=== PATIENT | male | born 1940 | race Caucasian/White ===

== ENCOUNTER 2017-05-16 10:17 | Emergency (ER) | payer OTHER ==
[~2017-05-16] VITALS: Ht 180.3 cm; Wt 84.0 kg
[2017-05-16 10:23] VITALS: BP 133/64; PULSE 69; RESP 16; TEMP 98.3; O2SAT 98
[2017-05-16] MEDS ORDERED: METF500T PO (10:33)
[2017-05-16] MEDS ORDERED: MULTTAB67 PO (10:33)
[2017-05-16] MEDS ORDERED: TRAM50TA PO (10:33)
[2017-05-16] MEDS ORDERED: ENAL10TA PO (10:33)
[2017-05-16] MEDS ORDERED: MAGN250T11 PO (10:33)
[2017-05-16] MEDS ORDERED: LOVA20TA PO (10:33)
[2017-05-16] MEDS ORDERED: ASPI-516 CHEW (10:33)
[2017-05-16] MEDS ORDERED: IBUP1TAB7 PO (10:33)
[2017-05-16] MEDS ORDERED: ORPHENADRINE INJ 60 MG/2 ML AMP IM ONE (11:15)
[2017-05-16] MEDS ORDERED: predniSONE 20 MG TAB PO ONE (11:15)
[2017-05-16] MEDS ORDERED: PRED20 PO (11:20)
[2017-05-16] MEDS ORDERED: ROBA750T PO (11:20)
--- NOTE | 2017-05-16 11:26 | PD ---
HPI Chief Complaint: Musculoskeletal Complaint Time Seen by Provider: 11:09 Travel History International Travel<30 days: No Contact w/Intl Traveler<30days: No Traveled to known affect area: No History of Present Illness HPI 76-year-old male presents to the emergency department for evaluation of left- sided neck pain that started yesterday. Patient states he woke up yesterday morning with the pain in his left neck. He denies any traumatic injury. He states he had a colonoscopy and then played 18 holes of golf after. He states that it started to hurt worse and then when he woke up this morning it was more painful. He currently rates the pain 7/10 to the left neck, aching and throbbing, without radiation. Patient is on ibuprofen and tramadol at home for pain. Patient states he tried a heating pad last night which helped temporarily. Patient denies any fevers or chills. No chest pain or shortness of breath. No other symptoms or complaints. Patient states the pain is worse if he moves his neck, relieved with keeping his head still. Moderate severity. PFSH Past Medical History High Cholesterol: Yes Diabetes: Yes Patient Takes Glucophage: Yes Hypertension: Yes Medical other: Yes (NEUROPATHY) Social History Alcohol Use: Yes (BEER DAILY) Tobacco Use: No Substance Use: No Allergies-Medications (Allergen,Severity, Reaction): Coded Allergies: caffeine (Verified Allergy, Unknown, 05/16/17) Reported Meds & Prescriptions Reported Meds & Active Scripts Active Reported Magnesium Oxide 250 Mg Tab 250 Mg PO DAILY Aspirin 81 Mg Chew 81 Mg CHEW DAILY Multiple Vitamin 1 Tab 1 Tab PO DAILY Enalapril (Enalapril Maleate) 10 Mg Tab 10 Mg PO DAILY Lovastatin 20 Mg Tab 20 Mg PO DAILY Tramadol (Tramadol HCl) 50 Mg Tab 50 Mg PO BID Ibuprofen 800 Mg Tab 800 Mg PO BID Metformin (Metformin HCl) 500 Mg Tab 500 Mg PO BIDPC Review of Systems Except as stated in HPI: all other systems reviewed are Neg Physical Exam Narrative GENERAL: Well-nourished, well-developed male patient, ambulatory. Afebrile. SKIN: Focused skin assessment warm/dry. HEAD: Normocephalic. Atraumatic. EYES: No scleral icterus. No injection or drainage. NECK: Supple, trachea midline. No JVD or lymphadenopathy. CARDIOVASCULAR: Regular rate and rhythm without murmurs, gallops, or rubs. RESPIRATORY: Breath sounds equal bilaterally. No accessory muscle use. Lung sounds are clear to auscultation. GASTROINTESTINAL: Abdomen soft, non-tender, nondistended. MUSCULOSKELETAL: No cyanosis, or edema. Patient has tenderness over left trapezius muscle. This pain is reproduced with lateral rotation of the neck. Bilateral upper extremity strength 5/5. All extremities are neurovascularly intact BACK: Nontender without obvious deformity. No CVA tenderness. Data Data Last Documented VS Vital Signs Date Time Temp Pulse Resp B/P (MAP) Pulse Ox O2 Delivery O2 Flow Rate FiO2 05/16/17 10:23 98.3 69 16 133/64 (87) 98 Orders Orders Orphenadrine Inj (Norflex Inj) (05/16/17 11:15) Prednisone (Deltasone) (05/16/17 11:15) MDM Medical Decision Making Medical Screen Exam Complete: Yes Emergency Medical Condition: Yes Medical Record Reviewed: Yes Differential Diagnosis Muscle strain versus muscle spasm versus torticollis Narrative Course 76-year-old male presents to the emergency department for evaluation of left- sided neck pain, worse with movement. Patient appears on exam. Exam is consistent with muscle strain/spasm. Patient is given Norflex 60 mg IM, prednisone 40 mg p.o. He will be discharged a prescription for Robaxin and prednisone. He is encouraged to try ice/heat and follow-up with primary care physician. He is return here for any acute worsening of symptoms. Diagnosis Primary Impression: Strain of neck muscle Qualified Codes: S16.1XXA - Strain of muscle, fascia and tendon at neck level , initial encounter Referrals: Primary Care Physician 2 days Patient Instructions: General Instructions, Muscle Strain (ED) Additional Instructions: Take prednisone as directed. Start this tomorrow. Take Robaxin as directed as needed. Ice/heat. Follow-up with a primary care physician. Return to the emergency department for any acute worsening of symptoms. Med/Other Pt SpecificInfo: Prescription(s) given Scripts Prednisone (Prednisone) 20 Mg Tab 40 MG PO DAILY for 4 Days, #8 TAB 0 Refills Take 40 mg (2 tablets) daily for 5 days Prov: Vivian Garcia 05/16/17 Methocarbamol (Robaxin) 750 Mg Tab 750 MG PO TID Y for MUSCLE SPASM, #21 TAB 0 Refills Prov: Vivian Garcia 05/16/17 Disposition: 01 DISCHARGE HOME Condition: Stable Vivian Garcia May 16, 2017 11:26
== END 2017-05-16 11:37 | disposition home or self-care (01) ==
LOC: PHEFT 10:17
DX: S16.1XXA Strain of muscle, fascia and tendon at neck level, initial encounter (principal); X50.9XXA Other and unspecified overexertion or strenuous movements or postures, initial encounter; E11.9 Type 2 diabetes mellitus without complications; E78.00 Pure hypercholesterolemia, unspecified; I10 Essential (primary) hypertension; Z79.82 Long term (current) use of aspirin; Z79.84 Long term (current) use of oral hypoglycemic drugs
CPT/HCPCS: 96372; 99283; J2360; J7512